=== PATIENT | female | born 1990 | race Caucasian/White ===

== ENCOUNTER 2017-10-06 07:49 | Day surgery (SDC) | payer OTHER ==
[2016-03-01 11:03] VITALS: BMI 25.4
[~2017-10-06 07:49] MED LIST: Lidocaine/Epi 1% 1:100000 20 ML IJ ONE
[2017-10-06] MEDS ORDERED: Acetaminophen-Codeine 300/30 mg Tab PO PRN (07:56)
[2017-10-06] MEDS ORDERED: Dextrose 5%/0.45% NS 1,000 ML IV SCH (08:00)
[2017-10-06 08:26] VITALS: O2SAT 100
[2017-10-06] MEDS ORDERED: ceFAZolin IV 1 gm in Dextrose 1 GM/50 ML BAG IVPB ONE (08:41)
[2017-10-06] MEDS ORDERED: EPINEPHrine 1:1000 Nasal Sol(30mL) ONE (08:42)
[2017-10-06] MEDS ORDERED: Propofol 10 mg/ml Inj (20 ML) ONE (09:31)
[2017-10-06] MEDS ORDERED: Midazolam 2 MG/2 ML VIAL ONE (09:31)
[2017-10-06] MEDS ORDERED: Rocuronium 10 mg/ml (5 ml) ONE (09:33)
[2017-10-06] MEDS ORDERED: Succinylcholine Chloride 20 mg/ml Syr (5 ml) IV ONE (09:33)
[2017-10-06] MEDS ORDERED: Lactated Ringer's 1,000 ML IV ONE ×2 (09:53→12:00)
[2017-10-06 13:57] VITALS: BP 117/60; PULSE 83; RESP 18; TEMP 98.1
--- NOTE | 2017-10-06 18:29 | OP ---
PROCEDURE DATE: 10/06/2017 PREOPERATIVE DIAGNOSES: Nasal polyps, large turbinates, sinusitis. POSTOPERATIVE DIAGNOSES: Nasal polyps, large turbinates, sinusitis. PROCEDURES: Endoscopic bilateral maxillary antrostomy, endoscopic bilateral ethmoidectomy, endoscopic bilateral frontal sinusotomy, endoscopic bilateral inferior turbinate reduction, endoscopic left sphenoidotomy. DESCRIPTION OF PROCEDURE: The patient was brought into the room and placed in the supine position. Anesthesia was initiated through an ET tube. Adrenaline-soaked pledgets were inserted into the nasal cavity, remained there for at least 5 minutes and removed. Navigation was set up and used throughout the entire case to ensure that the skull base and orbit were not entered. Attention was turned to the left. The polyps were noted emanating from the middle turbinates. The polyps as well as the middle turbinate were injected with lidocaine with epinephrine. A debrider was used to remove the polyps emanating from the middle turbinate. The uncinate process was medialized using a freer elevator after the middle turbinate was medialized. The uncinate was removed using forceps and debrider was used to enter the ethmoid bulla inferomedially going posteriorly to the basal lamella, then anteriorly and superiorly until the ethmoid bulla was removed. The basal lamella was entered. Posterior ethmoid cells were entered and opened, skull base was identified and followed anteriorly all the way to the area of the anterior ethmoid air cells. The portion of the bone superior to the middle turbinate was removed and skull base was followed through the area of the frontal recess which were noted to be stenosed and opened using forceps. A curved suction hooked up to navigation was used to locate the maxillary antrum, which was noted to be stenosed and opened using forceps. Bleeding was controlled using adrenaline-soaked pledgets and suction cautery. Next, scissors were used to reduce the inferior turbinate of the inferior portion going from the anterior to posterior direction. Bleeding was controlled using suction cautery. Next, attention was turned to the other side. The polyps emanating from the middle turbinate as well as the middle turbinate itself were injected with lidocaine with epinephrine and also, a debrider was used to debride the polyps emanating from the middle meatus and the middle turbinate was medialized using a freer elevator and the uncinate process was medialized using a freer elevator and removed using forceps. The debrider was used to enter the ethmoid bulla inferomedially going posteriorly to the basal lamella, then anteriorly and superiorly until the ethmoid bulla was removed. The basal lamella was entered. Posterior ethmoid cells were entered and opened. The skull base was identified and followed anteriorly all the way to the area of the anterior ethmoid air cells. The portion of the bone superiorly to the middle turbinate was removed and frontal recess was identified. There was noted to be stenosed and opened using forceps. Curved suction hooked up to navigation was used to locate the maxillary antrum which was noted to be stenosed and opened using forceps. The inferior portion of the inferior turbinate was reduced using scissors going from anterior to posterior direction and bleeding was controlled using suction cautery. Bleeding in the sinuses was controlled using afrin-soaked pledgets. Attention was again turned to the left. The sphenoid antrum was located and it was noted to be stenosed and opened using forceps and ethmoid splints were placed. The patient was taken off of anesthesia and taken to the recovery room in stable manner. Chidi Valdez MD
== END 2017-10-06 13:45 | disposition home or self-care (01) ==
LOC: C.SDS 07:49
PROVIDERS: ATTEND Otolaryngology
DX: J34.3 Hypertrophy of nasal turbinates (principal); J32.0 Chronic maxillary sinusitis; J32.1 Chronic frontal sinusitis; J33.9 Nasal polyp, unspecified; J34.2 Deviated nasal septum
CPT/HCPCS: 31254; 31256; 31276; 31287; 88304; J0690; J1100; J1170; J2250; J2704; J3010; J7120